=== PATIENT | male | born 1995 | race Caucasian/White ===

== ENCOUNTER 2022-10-24 09:47 | Emergency (ER) | payer MEDICAID, SELFPAY ==
[2022-10-24 09:49] VITALS: BP 163/104; PULSE 90; RESP 16; TEMP 36.6; O2SAT 96
--- NOTE | 2022-10-24 10:58 | ED.SKABFB ---
HPI - Skin/Abscess/Foreign Bdy General Chief complaint: Skin/Abscess/Foreign Body Stated complaint: Dog bit 4days ago-infected Time Seen by Provider: 10/24/22 10:29 Source: patient Mode of arrival: ambulatory Limitations: no limitations History of Present Illness HPI narrative: 27-year-old male who presents emergency department for evaluation of dog bite to his left hand. Patient states that 4 days ago he was in alley went to pet a stray dog. He states the dog then bit his hand and ran away. He states that over the past 24 hours the wound is become swollen, red and painful. He denied systemic symptoms such as fever, chills, fatigue. The patient does not know when his last tetanus shot was given. Related Data Previous Rx's Medication Instructions Recorded acetaminophen 500 mg tablet 1,000 mg PO Q6H PRN fever or pain 10/24/22 (Tylenol Extra Strength) #20 tabs amoxicillin 875 mg-potassium 1 tab PO Q12H #20 tabs 10/24/22 clavulanate 125 mg tablet ibuprofen 400 mg tablet 400 mg PO TID PRN fever or pain 10/24/22 #30 tabs Allergies Allergy/AdvReac Type Severity Reaction Status Date / Time No Known Allergies Allergy Verified 10/24/22 09:49 Review of Systems Review of Systems: Yes all other systems are reviewed and are negative [facility] Past Medical History [facility] Narrative: Past medical history: None. Surgical history: None. Social history: He smokes cigarettes. He denies alcohol use. He denies drug use. Social History Social History Advance Directives: No Advance Directives Information Provided: No Physical Exam Vital Signs: Vital Signs: Last Vital Signs Temp 98 F 10/24/22 09:49 Pulse 90 10/24/22 09:49 Resp 16 10/24/22 09:49 BP 163/104 H 10/24/22 09:49 Pulse Ox 96 10/24/22 09:49 O2 Del Method Room Air 10/24/22 09:49 BMI result Body Mass Index 30.0 Vital signs did reveal an elevated blood pressure of 163/104 otherwise unremarkable. General: Awake, alert, male patient, pleasant, cooperative no distress Extremities: Left hand has a bite wound to the hypothenar eminence, this area is erythematous, swollen, warm to the touch, no purulent drainage noted, no lymphangitis. Extremities neurovascular intact Medical Decision Making Medical Decision Making MDM Narrative: 27-year-old male who presents emergency department for evaluation of dog bite to his left hand, that occurred 4 days prior pain. Patient was bit by a stray dog. The patient states that he has had increased pain swelling and redness to the bite we therefore came to emergency department for evaluation. Examination is consistent with a cellulitis with soft tissue swelling. Treatment: Rabies immunoglobulin 20 milligrams/kilogram IM Rabies vaccine IM Tdap IM Augmentin 875 mg orally, Rx for Augmentin 875 q.12 times 10 days. Rx for Tylenol and ibuprofen for pain Patient referred to Orthopedics for follow-up Differential Diagnosis Differential diagnosis includes but is not limited to abscess, cellulitis, rabies exposure, tetanus exposure Discharge Plan Discharge Clinical Impression: Cellulitis, Dog bite of left hand, Need for post exposure prophylaxis for rabies, Need for prophylactic vaccination against rabies, Need for [id number] (Tdap) vaccine Patient Disposition: Home, Self-Care Instructions: Animal Bite (ED), Rabies (ED) Additional Instructions: Cellulitis Discharge Instructions You have an infection of your skin. This is called cellulitis. This is usually caused by bacteria from the dog light that got under your skin and then causes the infection Take Augmentin 875/125, 1 pill every 12 hours for 10 days.. This is an antibiotic that should help your body fight off the infection. Keep the area of cellulitis elevated to help reduce swelling in the infected area and this helps with the healing process Also apply a heating pad on low or a warm compress for 15 minutes, 4-6 times a day. This will increase the blood flow to the area and will bring white blood cells to the area which will help your body fight off the infection. Take Motrin(ibuprofen) 400 pills, 1 pills every 6 hours as needed for pain. Also take Tylenol( acetaminophen) 500 mg pills, 2 pills every 6 hours as needed for pain. If we uma a line around the area of cellulitis, the redness should withdraw from the line in the next 1-3 days. If the redness crosses the line this is a sign that the infection is getting worse and you should see your doctor or return to the Emergency Department for a recheck. Other signs of worsening infection include fever, chills, weakness, increased pain, increased redness, increased swelling or red streaks going away from the area of infection. If you develop any of these symptoms or any other symptoms that are concerning to you, see your doctor immediately or return to the Emergency Department. Follow up with our orthopedic doctor in 2 days for re-evaluation, sometimes a hand bite wound needs to be drained in the operating room. Please read the other printed instructions that we printed for you. You received a tetanus, diphtheria, Pertussin (Tdap) Prescriptions: New amoxicillin-pot clavulanate 875-125 mg tablet 1 tab PO Q12H Qty: 20 0RF acetaminophen [Tylenol Extra Strength] 500 mg tablet 1,000 mg PO Q6H PRN (Reason: fever or pain) Qty: 20 0RF ibuprofen 400 mg tablet 400 mg PO TID PRN (Reason: fever or pain) Qty: 30 0RF Referrals: Court Aaron MD [Physician] - 3 days (Dog bite left hand, cellulitis)
--- NOTE | 2022-10-24 12:00 | PC.NURSE ---
Patient presents after getting bitten by a stray dog on 10/21/22. Patient has a wound on left hand that has swelling around the area, no drainage noted at this time. Area cleaned and bacitracin applied to wound. Patient given TDAP and rabies immunizations per JUN.
[2022-10-24 12:06] VITALS: BP 165/106; PULSE 73; RESP 19; O2SAT 96
== END 2022-10-24 12:09 | disposition home or self-care (01) ==
PROVIDERS: Emergency Provider Emergency Medicine Emergency Medical Services
DX: S61.452A Open bite of left hand, initial encounter (principal); L03.114 Cellulitis of left upper limb; W54.0XXA Bitten by dog, initial encounter; Y93.9 Activity, unspecified; Y92.9 Unspecified place or not applicable; Y99.9 Unspecified external cause status; Z23 Encounter for immunization
CPT/HCPCS: 90375; 90471; 90472; 90715; 96372; 99284

== ENCOUNTER 2023-04-04 12:02 | Emergency (ER) | payer MEDICAID, SELFPAY ==
[2023-04-04 12:11] VITALS: BP 159/110; PULSE 78; RESP 18; TEMP 36.6; O2SAT 100; BMI 29.1
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
== END 2023-04-04 13:41 | disposition home or self-care (01) ==
PROVIDERS: Emergency Provider Student in an Organized Health Care Education/Training Program
DX: L03.113 Cellulitis of right upper limb (principal); M79.631 Pain in right forearm; T22.011D Burn of unspecified degree of right forearm, subsequent encounter; X19.XXXD Contact with other heat and hot substances, subsequent encounter; I10 Essential (primary) hypertension; Z91.148 Patient's other noncompliance with medication regimen for other reason
CPT/HCPCS: 99283